=== PATIENT | male | born 1940 | race Native Hawaiian/Other Pacific Islander ===

== ENCOUNTER 2017-08-09 09:52 | Observation (INO) | payer OTHER ==
[2017-08-09] VITALS (8 sets, daily range): BP systolic 128–166; BP diastolic 64–80; TEMP 97.7–99
[~2017-08-09] VITALS: Ht 167.6 cm; Wt 82.4 kg
[2017-08-09 12:00] LABS: PLATELET COUNT 251 K/uL (142-355)
[2017-08-09 12:07] LABS: POTASSIUM 4.1 mmol/L (3.6-5.2)
[2017-08-09] MEDS ORDERED: GLIP10TA55 PO (14:07)
[2017-08-09] MEDS ORDERED: LIPITOR20 MG PO (14:07)
[2017-08-09] MEDS ORDERED: TAMSULOSIN0.4 MG PO (14:07)
[2017-08-09] MEDS ORDERED: [UNRECOGNIZED DRUG - OTHER] OR (14:08)
[2017-08-09] MEDS ORDERED: GABA300C2 PO (14:08)
[2017-08-09] MEDS ORDERED: VENLAFAXINE HC100 MG PO (14:08)
[2017-08-09] MEDS ORDERED: OMEP20CA PO (14:09)
[2017-08-09] MEDS ORDERED: ALLO300T23 PO (14:09)
[2017-08-09] MEDS ORDERED: ASPIR-LOW81 MG OR (14:09)
[2017-08-10] VITALS: BP 135/66; TEMP 98.3
[2017-08-10 04:00] VITALS: BP 155/65; TEMP 98.4
[2017-08-10 06:06] LABS: PLATELET COUNT 232 K/uL (142-355)
[2017-08-10 06:29] LABS: POTASSIUM 3.6 mmol/L (3.6-5.2); SODIUM 137 mmol/L (136-145)
[2017-08-10 07:55] VITALS: BP 136/63; TEMP 98.3
[2017-08-10 12:00] VITALS: BP 142/72; TEMP 98.3
[2017-08-10 16:00] VITALS: BP 132/73; TEMP 98.4
--- NOTE | 2017-08-10 16:30 | NUR ---
D/C ORDERS RECIEVED. IV AND TELE D/C'D. D/C INSTRUCTIONS GIVEN. PT HAS NO FUTHER QUESTIONS. PT INSTRUCTED TO MAKE FU WITH DR SANDHU. PT WAITING ON RIDE AT THIS TIME. NO PROBLEMS NOTED.
--- NOTE | 2017-08-10 17:05 | NUR ---
PT TRANSPORTED OUT OF FACILITY AT THIS TIME VIA W/C BY STUDENT NURSE. NO PROBLEMS NOTED.
== END 2017-08-10 16:20 | disposition home or self-care (01) ==
LOC: ED 09:52 → MED/SURG 13:37
PROVIDERS: ADMIT Specialist
DX: S02.40CA Maxillary fracture, right side, initial encounter for closed fracture (principal); R55 Syncope and collapse; S00.83XA Contusion of other part of head, initial encounter; W19.XXXA Unspecified fall, initial encounter; Y93.89 Activity, other specified; Y92.89 Other specified places as the place of occurrence of the external cause; R06.02 Shortness of breath; E11.9 Type 2 diabetes mellitus without complications; E78.4 Other hyperlipidemia; H91.8X9 Other specified hearing loss, unspecified ear
CPT/HCPCS: 36415; 80053; 81000; 82550; 82553; 82948; 83735; 84100; 84484; 85027; 93005; 93306; 99220; 99283; G0378; J1885; J7040

== ENCOUNTER 2017-08-24 08:47 | Outpatient (CLI) | payer OTHER ==
[~2017-08-24 08:47] MED LIST: ALLO300T23 PO; ASPIR-LOW81 MG OR; GABA300C2 PO; GLIP10TA55 PO; LIPITOR20 MG PO; OMEP20CA PO; TAMSULOSIN0.4 MG PO; VENLAFAXINE HC100 MG PO; [UNRECOGNIZED DRUG - OTHER] OR
== END 2017-08-24 19:07 | disposition home or self-care (01) ==
LOC: NM 08:47
DX: R06.02 Shortness of breath (principal)
CPT/HCPCS: A9500; J2785